=== PATIENT | female | born 1960 | race African-American/Black ===

== ENCOUNTER 2020-03-24 15:23 | Emergency (ER) | payer MEDICAID ==
[~2020-03-24] VITALS: Ht 167.6 cm; Wt 90.0 kg
[~2020-03-24 15:23] MED LIST: NAPROSYN; UNKNOWN MEDICATION; VICODIN
[2020-03-24] MEDS ORDERED: SODIUM CHLORIDE 0.9% 1,000 ML IV ONE (17:32)
[2020-03-24] MEDS ORDERED: KETOROLAC 30MG/ML VIAL IV STA (17:32)
[2020-03-24 18:49] LABS: BASOPHILS % 0.5 % (0.0-2.0); CLARITY URINE CLEAR (CLEAR); COLOR URINE YELLOW (YELLOW); EOSINOPHILS % 1.6 % (0.0-5.0); HEMATOCRIT. 39.5 % (36.0-48.0); HEMOGLOBIN. 13.4 g/dL (12.0-16.0); KETONES URINE NEGATIVE (NEGATIVE); LEUKOCYTE ESTERASE URINE TRACE (NEGATIVE); LYMPHOCYTES % 16.8 % (20.0-50.0); MEAN CORPUSCULAR HEMOGLOBIN 32.6 pg (28.0-32.0); MEAN CORPUSCULAR VOLUME 96.5 fL (81.0-99.0); MONOCYTES % 7.4 % (2.0-8.0); NEUTROPHILS % 73.7 % (40.0-76.0); NITRITE URINE NEGATIVE (NEGATIVE); OCCULT BLOOD URINE NEGATIVE (NEGATIVE); PLATELET 251 x1000/uL (130-400); PROTEIN URINE NEGATIVE (NEGATIVE); RED BLOOD CELL COUNT 4.09 mill/uL (4.2-5.4); RED CELL DISTRIBUTION WIDTH 12.7 % (11.6-14.6); SPECIFIC GRAVITY URINE 1.008 (1.005-1.030)
[2020-03-24 18:51] LABS: CHLORIDE 105 mEq/L (98-107)
[2020-03-24 18:53] LABS: PROTHROMBIN TIME 10.4 sec (9.6-11.0)
[2020-03-24 20:48] VITALS: BP 115/50
== END 2020-03-24 20:52 | disposition home or self-care (01) ==
LOC: ER 15:23
DX: N39.0 Urinary tract infection, site not specified (principal); E03.9 Hypothyroidism, unspecified; Z90.710 Acquired absence of both cervix and uterus; Z88.5 Allergy status to narcotic agent; Z88.6 Allergy status to analgesic agent
CPT/HCPCS: 36415; 74021; 80053; 81003; 83690; 84484; 85025; 85610; 96374; 99284; J1885; J7030

== ENCOUNTER 2025-02-18 14:13 | Emergency (ER) | payer MEDICAID, OTHER ==
[~2025-02-18] VITALS: Ht 157.5 cm; Wt 68.0 kg
[~2025-02-18 14:13] MED LIST changes: +LEVO50TA8 MT; +NAPR-1486 MT
[2025-02-18 14:16] VITALS: O2SAT 98
[2025-02-18] MEDS ORDERED: HYDROCODONE/ACETAMINOPHEN 10/325MG TABLET PO ONE (15:15)
[2025-02-18] MEDS: CYCLOBENZAPRINE 10MG TABLET PO ONE (16:26)
[2025-02-18] MEDS: KETOROLAC 30MG/ML VIAL IM ONE (16:28)
[2025-02-18] MEDS ORDERED: METH-773 MT (17:12)
[2025-02-18] MEDS ORDERED: IBUP-2030 MT (17:13)
[2025-02-18 17:29] VITALS: BP 149/51; PULSE 64; RESP 16; TEMP 36.9; O2SAT 97
== END 2025-02-18 17:34 | disposition home or self-care (01) ==
LOC: ER2 14:13 → ER 17:34
DX: G89.29 Other chronic pain (principal); M54.2 Cervicalgia; E03.9 Hypothyroidism, unspecified; Z79.890 Hormone replacement therapy; Z79.1 Long term (current) use of non-steroidal anti-inflammatories (NSAID); Z79.899 Other long term (current) drug therapy
CPT/HCPCS: 72050; 99283